=== PATIENT | male | born 1995 | race Caucasian/White ===

== ENCOUNTER 2020-06-14 17:56 | Emergency (ER) | payer OTHER ==
[2020-06-14 18:12] LABS: Arterial Blood Carboxyhemoglob 2.3 % (0-1.5); Blood Gas Oxyhemoglobin 96.6 % (94-97); Blood O2 Saturation 99.7 % (92-98.5)
[2020-06-14] MEDS ORDERED: LORazepam 2 MG/ML VIAL ONE (18:12)
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
[2020-06-14 18:37] LABS: Absolute Lymphocytes (CBC) 1.1 K/uL (0.7-4.9); Basophils % 0.7 % (0-1.3); Hematocrit 42.6 % (39.6-49.0); Lymphocytes % 20.3 % (15.3-44.8); MPV 8.3 fL (7.6-11.3); RBC Red Blood Cell Count 4.92 M/uL (4.33-5.43)
--- NOTE | 2020-06-14 19:10 | RAD REPORT ---
EXAM DESCRIPTION: RAD - Femur Left - 06/14/2020 6:41 pm CLINICAL HISTORY: PAIN COMPARISON: No comparisons FINDINGS: No acute fracture or dislocation is seen.
[2020-06-14] MEDS ORDERED: LEVETIRACETAM 500 MG/5 ML VIAL IV ONE (19:20)
[2020-06-14] MEDS ORDERED: NA CHLORIDE 0.9% 250 ML ONE (19:20)
[2020-06-14] MEDS ORDERED: NA CHLORIDE 0.9% 1,000 ML ONE (19:28)
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
[2020-06-15 03:28] VITALS: BP 121/75; TEMP 97.5; O2SAT 100
== END 2020-06-14 21:38 | disposition home or self-care (01) ==
LOC: ER 17:56
DX: R56.9 Unspecified convulsions (principal); F31.9 Bipolar disorder, unspecified
CPT/HCPCS: 36415; 70450; 72125; 80048; 82805; 85025; 96365; 96375; 99284; J1953; J7030; J7050